=== PATIENT | female | born 1950 | race Hispanic/Latino ===

== ENCOUNTER 2018-07-25 15:44 | Emergency (ER) | payer MEDICARE ==
[~2018-07-25] VITALS: Ht 162.6 cm; Wt 104.3 kg
--- OUTSIDE RECORDS SUMMARY | 2018-07-25 15:47 | XMS REPORT ---
[facility] Address Unknown Phone Unavailable Care Team Providers Care Burner Tender Name Role Phone Shonna RODNEY Unavailable Unavailable Grisel JULIO Unavailable Unavailable Payers Payer Name Policy Type Policy Number Effective Date Expiration Date Problems This patient has no known problems. Allergies, Adverse Reactions, Alerts Allergy Name Allergy Type Status Severity Reaction(s) Onset Date Inactive Date Treating Clinician Comments No Known Allergies DA Active U 2018-02-24 00:00:00 Medications This patient has no known medications. Results Test Description Test Time Test Comments Text Results Atomic Results Result Comments US GUIDANCE FOR VASCULAR ACCES 2018-03-08 16:05:00 [place] [address] Patient Name: QUE ZIEGLER MR #: [id number] : 1950 Age/Sex: 67/F Req #: [id number] Adm Physician: Ordered by: MARIYA RODNEY MD Report #: [id number] Location: [place] Room/Bed: Procedure: US/US GUIDANCE FOR VASCULAR ACCES Exam Date: Exam Time: REPORT STATUS: Signed PROCEDURE: US GUIDANCE FOR VASCULAR ACCESS COMPARISON: None. INDICATIONS: Poor IV Access. FINDINGS: Ultrasound evaluation of potential access sites was performed. After successfully identifying a patent vessel, US guidance was used to puncture the vein. A permanent recording was created for the patient record. CONCLUSION: Successful IV access by Ultrasound guidance. Dictated by: SUKUMAR ROBLEDO M.D. on 03/08/2018 at 16:05 Electronically approved by: SUKUMAR ROBLEDO M.D. on 03/08/2018 at 16:05 Dictated By: SUKUMAR ROBLEDO MD 160 Transcribed By: LUIS MANUEL on 03/08/18 160 COPY TO: MARIYA RODNEY MD CT ABDOMEN/PELVIS W 2018-02-03 14:14:00 [place] [address] Patient Name: QUE ZIEGLER MR #: [id number] : 1950 Age/Sex: 67/F Req #: [id number] Adm Physician: Ordered by: MARIYA RODNEY MD Report #: [id number] Location: CT Room/Bed: Procedure: CT/CT ABDOMEN/PELVIS W Exam Date: 02/03/18 Exam Time: 1110 REPORT STATUS: Signed PROCEDURE: CT ABDOMEN AND PELVIS WITH CONTRAST TECHNIQUE: The abdomen and pelvis were scanned utilizing a multidetector helical scanner from the diaphragm to the Lesser trochanter after the IV administration of 100 cc of Isovue 370 and the oral administration of 900 cc of Gastrografin and water. Coronal and sagittal multiplanar reformations were obtained. COMPARISON: None. INDICATIONS: ABDOMINAL PAIN FINDINGS: LOWER THORAX: Normal. HEPATOBILIARY: No focal hepatic lesions. No biliary ductal dilatation. SPLEEN: No splenomegaly. PANCREAS: No focal masses or ductal dilatation. ADRENALS: No adrenal nodules. KIDNEYS/URETERS: There is moderate left hydronephrosis and hydroureter with a delayed left nephrogram. Mild right hydronephrosis. No solid renal masses or cysts. PE LVIC ORGANS/BLADDER: There is a 12.2 x 3.1 x 4.1 cm (AP x TV x SI) mass in the left hemipelvis. The mass medially is indistinguishable from the bladder wall, and involves the left UVJ. The mass extends adjacent to the right UVJ. Superiorly, the mass abuts and may invade the sigmoid colon on series 301, image 63. Inferiorly, the mass is indistinguishable from the uterus. The mass extends anteriorly to involve the left lower rectus abdominis muscle. The largest dimensions of the mass that involve the left anterior abdominal musculature measure 6 x 4.4 x 7.8 cm and has hypodense internal components which may represent necrosis or cystic change. The mass obstructs the left inferior ureter. PERITONEUM / RETROPERITONEUM: No free air or fluid. Some fat stranding is noted adjacent to the mid ureter, which may reflect inflammatory change from obstructive process. LYMPH NODES: No lymphadenopathy. Para-aortic lymph nodes measuring up to 8 mm are non-specifi c. VESSELS: Scattered atherosclerotic vascular calcifications. GI TRACT: No distention or wall thickening. Diverticulosis without CT evidence of diverticulitis. Normal appendix. BONES AND SOFT TISSUES: No acute bony findings. No suspicious lytic or blastic lesions. IMPRESSION: Left pelvic mass, involving the left bladder wall and left anterior abdominal wall, and indistinguishable from the uterus. The sigmoid colon also may be involved. The findings are concerning for malignancy, although the primary source is unclear. Tissue diagnosis is suggested. Internal hypodensity within the mass may represent necrosis or cystic change, although superinfection is possible in the appropriate clinical setting. No evidence of large drainable fluid collection. Moderate left and mild right hydronephrosis from mass effect from the pelvic tumor. Dictated by: SUKUMAR ROBLEDO M.D. on 02/03/2018 at 14:14 Electronically approved by: SUKUMAR ROBLEDO M.D. on 02/03/2018 at 14:14 Dictated By: SUKUMAR ROBLEDO MD 13 Transcribed By: LUIS MANUEL on 02/03/181413 COPY TO: MARIYA RODNEY MD CHEST SINGLE (PORTABLE) [place] [address] Patient Name: QUE ZIEGLER MR #: [id number] : 1950 Age/Sex: 66/F Req #: [id number] Adm Physician: Ordered by: MAYA JULIO MD Report #: [id number] Location: ER Room/Bed: Procedure: [id number] DX/CHEST SINGLE (PORTABLE) Exam Date: 02/13/17 Exam Time: 2335 REPORT STATUS: Signed EXAM: CHEST SINGLE (PORTABLE), AP 1 view DATE: 02/13/2017 11:16 PM Time stamp on exam: 2346 hours INDICATION: Legs weak COMPARISON: None FINDINGS: LINES/TUBES: None LUNGS: No consolidations or edema. PLEURA: No effusions or pneumothorax. HEART AND MEDIASTINUM: Normal size and contour. BONES AND SOFT TISSUES: No acute findings. IMPRESSION: No acute thoracic abnormality. Signed by: Dr. Milly Lizama M.D. on 02/14/2017 12:04 AM Dictated By: MILLY LIZAMA MD 0004 Transcribed By: DOMENIC on 02/14/173 COPY TO: MAYA JULIO MD
[2018-07-25] MEDS ORDERED: RIVAROXABAN 15 MG TABLET PO ONE (16:30)
[2018-07-25 16:38] LABS: BASOPHILS % 0.3 % (0.0-1.0); EOSINOPHILS # (AUTO) 0.1 (0.0-0.4); EOSINOPHILS % 1.8 % (0.0-6.0); HEMATOCRIT 30.7 % (34.2-44.1); HEMOGLOBIN 9.6 g/dL (12.0-16.0); LYMPHOCYTES # (AUTO) 0.9 (1.0-3.2); LYMPHOCYTES % 14.4 % (18.0-39.1); MEAN CORPUSCULAR HEMOGLOBIN 27.2 pg (28-32); MEAN CORPUSCULAR HGB CONC 31.3 g/dL (31-35); MONOCYTES # (AUTO) 0.5 (0.2-0.8); MONOCYTES % 7.4 % (4.4-11.3); NEUTROPHILS # (AUTO) 4.7 (2.1-6.9); NEUTROPHILS % 75.8 % (38.7-80.0); PLATELET COUNT 179 x10e3/uL (140-360); RED BLOOD COUNT 3.53 x10e6/uL (3.6-5.1); RED CELL DISTRIBUTION WIDTH 19.5 % (11.7-14.4)
[2018-07-25 16:49] LABS: INR 0.99; PARTIAL THROMBOPLASTIN TIME 23.8 seconds (23.8-35.5)
[2018-07-25 16:54] LABS: ALBUMIN 3.9 g/dL (3.5-5.0); ALBUMIN/GLOBULIN RATIO 1.2 (0.8-2.0); CALCIUM 9.8 mg/dL (8.4-10.2); CREATININE, SERUM 0.97 mg/dL (0.57-1.11)
[2018-07-25 17:41] VITALS: BP 138/60
== END 2018-07-25 18:02 | disposition home or self-care (01) ==
LOC: ER 15:44
DX: M79.605 Pain in left leg (principal); I82.412 Acute embolism and thrombosis of left femoral vein; I82.432 Acute embolism and thrombosis of left popliteal vein; I10 Essential (primary) hypertension; Z85.42 Personal history of malignant neoplasm of other parts of uterus
CPT/HCPCS: 36415; 80053; 85025; 85610; 85730; 93005; 99284

== ENCOUNTER → 2018-07-25 | Outpatient (CLI) | payer MEDICARE ==
[~2018-07-25] MED LIST: LOSARTAN POTAS100 MG PO
== END ==
LOC: RAD 14:05
PROVIDERS: ATTEND Family Medicine
DX: I89.0 Lymphedema, not elsewhere classified (principal); R60.0 Localized edema
CPT/HCPCS: 93971